=== PATIENT | female | born 1995 | race Caucasian/White ===

== ENCOUNTER 2021-09-16 23:24 | Emergency (ER) | payer BC, MEDICAID ==
[2021-09-17 00:11] VITALS: TEMP 98.5
[2021-09-17 00:53] LABS: COLLECTION METHOD CLEAN CATCH
[2021-09-17 00:58] LABS: BASO # 0.1 K/mm3 (0.0-0.2); BASO % 0.6 % (0.0-2.0); EOS # 0.1 K/mm3 (0.0-0.7); EOS % 1.3 % (0.0-4.0); GRAN # 3.6 K/mm3 (1.4-6.5); HEMATOCRIT 37.5 % (37.0-47.0); HEMOGLOBIN 13.5 g/dl (12.5-16.0); LYMPH # 3.8 K/mm3 (1.2-3.4); LYMPH % 45.4 % (20.0-51.0); MEAN CELL VOLUME 91 fl (80.0-100.0); MEAN CORPUSCULAR HEMOGLOBIN 33 pg (27-31); MEAN CORPUSCULAR HGB CONC 36 g/dl (33.0-37.0); MEAN PLATELET VOLUME 10.2 fl (7.4-10.4); MONO # 0.8 K/mm3 (0.1-0.6); MONO % 9.6 % (1.7-9.3); PLATELET COUNT 270 K/mm3 (130-400); RED BLOOD COUNT 4.13 M/mm3 (4.10-5.30)
[2021-09-17 01:07] LABS: MUCOUS Present (NOT PRESENT); PH 6 (5-8); URINE APPEARANCE Hazy (CLEAR/HAZY); URINE BACTERIA Rare (NONE SEEN); URINE BILIRUBIN Negative (NEGATIVE); URINE BLOOD Negative (NEGATIVE); URINE COLOR Yellow (YELLOW); URINE GLUCOSE Negative (NEGATIVE); URINE KETONE Negative (NEGATIVE); URINE LEUKOCYTE ESTERASE Negative (NEGATIVE); URINE NITRATE Negative (NEGATIVE); URINE PROTEIN(semi-quant) Negative (NEGATIVE); URINE RBC 0-2 /hpf (0-2); URINE UROBILINOGEN Negative (NEGATIVE)
[2021-09-17 01:15] LABS: ALBUMIN 3.9 gm/dL (3.5-5.0); BILIRUBIN,TOTAL 0.5 mg/dL (0.2-1.2); C-REACTIVE PROTEIN 0.22 mg/dL (0.00-0.50); CALCIUM 8.7 mg/dL (8.4-10.2); CREATININE, serum 0.84 mg/dL (0.57-1.11); POTASSIUM 3.5 mmol/L (3.5-4.5); TOTAL PROTEIN 6.2 gm/dL (6.2-8.1)
[2021-09-17 03:03] VITALS: BP 129/84; PULSE 86
== END 2021-09-17 03:03 | disposition home or self-care (01) ==
LOC: COL.ER 23:24
PROVIDERS: Nurse Practitioner
DX: R10.11 Right upper quadrant pain (principal)
CPT/HCPCS: J2270; J2405; J7030

== ENCOUNTER 2021-09-17 21:55 | Emergency (ER) | payer BC, MEDICAID ==
[~2021-09-17] VITALS: Ht 160 cm; Wt 72.7 kg
[2021-09-17 22:09] VITALS: TEMP 98.3
[2021-09-17 22:57] LABS: BASO # 0.1 K/mm3 (0.0-0.2); BASO % 0.6 % (0.0-2.0); EOS # 0.1 K/mm3 (0.0-0.7); EOS % 0.9 % (0.0-4.0); GRAN # 4.2 K/mm3 (1.4-6.5); GRAN % 49.1 % (42.2-75.2); HEMATOCRIT 38.5 % (37.0-47.0); HEMOGLOBIN 13.5 g/dl (12.5-16.0); LYMPH # 3.5 K/mm3 (1.2-3.4); MEAN CELL VOLUME 94 fl (80.0-100.0); MEAN CORPUSCULAR HEMOGLOBIN 33 pg (27-31); MEAN CORPUSCULAR HGB CONC 35 g/dl (33.0-37.0); MEAN PLATELET VOLUME 10.3 fl (7.4-10.4); MONO # 0.7 K/mm3 (0.1-0.6); MONO % 8.3 % (1.7-9.3); PLATELET COUNT 261 K/mm3 (130-400); RED BLOOD COUNT 4.11 M/mm3 (4.10-5.30)
[2021-09-17 23:19] LABS: ALBUMIN 3.8 gm/dL (3.5-5.0); BILIRUBIN,TOTAL 0.5 mg/dL (0.2-1.2); C-REACTIVE PROTEIN 0.1 mg/dL (0.00-0.50); CALCIUM 8.9 mg/dL (8.4-10.2); CREATININE, serum 0.8 mg/dL (0.57-1.11); POTASSIUM 3.6 mmol/L (3.5-4.5)
[2021-09-18 01:14] VITALS: BP 106/67; PULSE 68
== END 2021-09-18 01:19 | disposition home or self-care (01) ==
LOC: COL.ER 21:55
PROVIDERS: Physician Assistant
DX: K80.50 Calculus of bile duct without cholangitis or cholecystitis without obstruction (principal)
CPT/HCPCS: J1885; J2270; J2405; J7030; Q9967

== ENCOUNTER → 2021-09-17 | Outpatient (CLI) | payer BC, MEDICAID | LOC: COL.RAD 07:38 | DX: R10.11 Right upper quadrant pain (principal) ==

== ENCOUNTER 2021-10-28 12:43 | Emergency (ER) | payer BC, MEDICAID ==
[~2021-10-28] VITALS: Ht 157.5 cm; Wt 79.5 kg
[2021-10-28 13:33] LABS: BASO # 0.1 K/mm3 (0.0-0.2); BASO % 0.6 % (0.0-2.0); EOS # 0.1 K/mm3 (0.0-0.7); EOS % 0.5 % (0.0-4.0); GRAN # 9.4 K/mm3 (1.4-6.5); GRAN % 73.5 % (42.2-75.2); HEMOGLOBIN 12.7 g/dl (12.5-16.0); LYMPH # 2.4 K/mm3 (1.2-3.4); LYMPH % 18.9 % (20.0-51.0); MEAN CELL VOLUME 93 fl (80.0-100.0); MEAN CORPUSCULAR HEMOGLOBIN 32 pg (27-31); MEAN CORPUSCULAR HGB CONC 34 g/dl (33.0-37.0); MEAN PLATELET VOLUME 9.7 fl (7.4-10.4); MONO # 0.8 K/mm3 (0.1-0.6); MONO % 6.1 % (1.7-9.3); PLATELET COUNT 303 K/mm3 (130-400); RED BLOOD COUNT 3.95 M/mm3 (4.10-5.30); REDCELL DISTRIBUTION WIDTH-CV 11.9 % (11.5-14.5)
[2021-10-28 13:34] LABS: HEMATOCRIT 36.9 % (37.0-47.0)
[2021-10-28 13:50] LABS: ALBUMIN 3.8 gm/dL (3.5-5.0); BILIRUBIN,TOTAL 0.3 mg/dL (0.2-1.2); CALCIUM 8.9 mg/dL (8.4-10.2); CREATININE, serum 0.76 mg/dL (0.57-1.11); TOTAL PROTEIN 6.3 gm/dL (6.2-8.1)
[2021-10-28] MEDS ORDERED: ZITHROMAX Z PA250 MG PO (14:29)
[2021-10-28] MEDS ORDERED: TESSALON P100 MG/CAP PO (14:29)
[2021-10-28] MEDS ORDERED: PREDNISONE20 MG PO (14:29)
[2021-10-28 14:55] VITALS: BP 125/77; PULSE 81; TEMP 98.8
== END 2021-10-28 14:58 | disposition home or self-care (01) ==
LOC: COL.ER 12:43
PROVIDERS: Nurse Practitioner
DX: J40 Bronchitis, not specified as acute or chronic (principal); D72.829 Elevated white blood cell count, unspecified; Z20.822 Contact with and (suspected) exposure to COVID-19
CPT/HCPCS: J7030

== ENCOUNTER 2021-11-29 17:57 | Emergency (ER) | payer BC, MEDICAID ==
[~2021-11-29] VITALS: Ht 157.5 cm; Wt 79.5 kg
[~2021-11-29 17:57] MED LIST: PREDNISONE20 MG PO; TESSALON P100 MG/CAP PO; ZITHROMAX Z PA250 MG PO
[2021-11-29 18:13] VITALS: TEMP 98.3
[2021-11-29 20:55] VITALS: BP 134/90; PULSE 78
== END 2021-11-29 20:55 | disposition home or self-care (01) ==
LOC: COL.ER 17:57
DX: M25.512 Pain in left shoulder (principal); F17.210 Nicotine dependence, cigarettes, uncomplicated

== ENCOUNTER → 2022-02-14 | Outpatient (CLI) | payer MEDICAID | LOC: COL.RAD 08:02 | DX: Q52.8 Other specified congenital malformations of female genitalia (principal); R91.1 Solitary pulmonary nodule | CPT/HCPCS: Q9967 ==

== ENCOUNTER 2022-04-24 15:03 | Emergency (ER) | payer MEDICAID ==
[~2022-04-24] VITALS: Ht 160 cm; Wt 81.8 kg
[2022-04-24 15:43] LABS: BASO # 0.1 K/mm3 (0.0-0.2); BASO % 0.3 % (0.0-2.0); EOS % 0.1 % (0.0-4.0); GRAN # 13.2 K/mm3 (1.4-6.5); GRAN % 81.7 % (42.2-75.2); HEMATOCRIT 39.8 % (37.0-47.0); HEMOGLOBIN 14.1 g/dl (12.5-16.0); LYMPH # 1.4 K/mm3 (1.2-3.4); LYMPH % 8.5 % (20.0-51.0); MEAN CELL VOLUME 93 fl (80.0-100.0); MEAN CORPUSCULAR HEMOGLOBIN 33 pg (27-31); MEAN CORPUSCULAR HGB CONC 35 g/dl (33.0-37.0); MONO # 1.5 K/mm3 (0.1-0.6); PLATELET COUNT 298 K/mm3 (130-400); RED BLOOD COUNT 4.29 M/mm3 (4.10-5.30); REDCELL DISTRIBUTION WIDTH-CV 11.9 % (11.5-14.5)
[2022-04-24 16:03] LABS: ALBUMIN 3.7 gm/dL (3.5-5.0); BILIRUBIN,TOTAL 0.5 mg/dL (0.2-1.2); CALCIUM 9.4 mg/dL (8.4-10.2); CREATININE, serum 0.91 mg/dL (0.57-1.11); TOTAL PROTEIN 6.8 gm/dL (6.2-8.1)
[2022-04-24 16:06] LABS: COLLECTION METHOD CLEAN CATCH
[2022-04-24 16:23] LABS: MUCOUS Present (NOT PRESENT); PH 5 (5-8); URINE APPEARANCE Hazy (CLEAR/HAZY); URINE BACTERIA Rare /hpf (NONE SEEN); URINE BLOOD 1+ (NEGATIVE); URINE COLOR Yellow (YELLOW); URINE GLUCOSE Negative (NEGATIVE); URINE KETONE 1+ (NEGATIVE); URINE NITRATE Negative (NEGATIVE); URINE PROTEIN(semi-quant) 1+ (NEGATIVE); URINE RBC 20-50 /hpf (0-2)
[2022-04-24] MEDS ORDERED: CIPRO 500MG TA500 MG PO (17:16)
[2022-04-24 18:25] VITALS: BP 130/66; PULSE 101; TEMP 99
[2022-05-17] MEDS ORDERED: WELLBUTRIN XL300 M1 PO (13:16)
[2022-05-17] MEDS ORDERED: LAMICTAL150 MG PO (13:17)
== END 2022-04-24 18:25 | disposition home or self-care (01) ==
LOC: COL.ER 15:03
PROVIDERS: Emergency Medicine
DX: N12 Tubulo-interstitial nephritis, not specified as acute or chronic (principal); R91.1 Solitary pulmonary nodule; Z20.822 Contact with and (suspected) exposure to COVID-19
CPT/HCPCS: J0696; J2405; J7030; Q9967

== ENCOUNTER 2022-05-22 08:45 | Outpatient (CLI) | payer MEDICAID ==
[2022-05-22] VITALS (15 sets, daily range): BP systolic 100–138; BP diastolic 61–102; PULSE 58–86; TEMP 98.1
[~2022-05-22] VITALS: Ht 157.5 cm; Wt 97.7 kg
[~2022-05-22 08:45] MED LIST changes: +CIPRO 500MG TA500 MG PO; +LAMICTAL150 MG PO; +WELLBUTRIN XL300 M1 PO
--- NOTE | 2022-05-22 11:31 | NUR ---
Pt arrived to room 9 via cart.Report from Melinda Pinto.Pt arrives reporting pain rated at a 7 on 0-10 scale.Pt coughed and desated to mid 80 when coughing.Oxygen at 2l via nasal cannula.Small amount of blood observed coughed up.Chest xray completed.Melinda Pinto reported to Dr Chase.Pt at 100% on 2l o2 at this time.
--- NOTE | 2022-05-22 14:20 | NUR ---
Discharge instructions gievn to pt.Pt verbalizes understanding.Pt escorted out via wheelchair by this nurse.
== END 2022-05-22 15:20 ==
LOC: COL.RAD 08:45
DX: R91.8 Other nonspecific abnormal finding of lung field (principal)
CPT/HCPCS: 32106